=== PATIENT | female | born 1935 | race Caucasian/White ===

== ENCOUNTER → 2017-03-25 | Outpatient (CLI) | payer MEDICARE, OTHER ==
--- NOTE | 2017-03-25 09:22 | RADIOLOGY REPORT (SQ) ---
EXAM DESCRIPTION: MRI ABDOMEN WITHOUT COMPLETED DATE/TIME: 03/25/2017 8:39 am REASON FOR STUDY: *MRCP* OTHER SPECIFIED DISEASES OF BILIARY TRACT (K83.8) K83.8 OTHER SPECIFIED DI SEASES OF BILIARY TRACT COMPARISON: None. TECHNIQUE: Noncontrast MRCP. Source and MIP images reviewed. LIMITATIONS: Motion artifact. FINDINGS: GALLBLADDER: Distended. Possible small amount of material layering in the dependent porti on. INTRAHEPATIC DUCTS: Markedly dilated. EXTRAHEPATIC DUCTS: Markedly dilated extrahepatic bile ducts. The common bile duct measures 14 mm. No definite filling defects. Mild dilation of the pancreatic duct. PANCREAS: Generally homogeneous, no gross mass or significant signal alteration. No surrounding infl ammatory changes or fluid. Pancreatic duct mildly dilated. LIVER, SPLEEN, KIDNEYS, ADRENALS: No significant abnormality. VESSELS: No evidence of aneurysm. Grossly appropriate flow voids in the major vascular structures. LUNG BASES: Grossly clear. OTHER: No other significant finding. IMPRESSION: 1. MARKEDLY DILATED BILIARY SYSTEM. NO CLEAR-CUT FILLING DEFECTS IN THE LUMEN. RECOMMEND ERCP FOR F URTHER EVALUATION AND TREATMENT. 2. DISTENDED GALLBLADDER. QUESTIONABLE LAYERING MATERIAL, POSSIBLY SLUDGE, VERSUS ARTIFACT. RECOMME ND CORRELATION WITH ULTRASOUND. TECHNICAL DOCUMENTATION: JOB ID: [id number] [employer]- All Rights Reserved
--- NOTE | 2017-03-25 09:24 | RADIOLOGY REPORT (SQ) ---
EXAM DESCRIPTION: MRI ABDOMEN COMBO COMPLETED DATE/TIME: 03/25/2017 8:39 am REASON FOR STUDY: OTHER SPECIFIED DISEASES OF BILIARY TRACT (K83.8) K83.8 OTHER SPECIFIED DISEASES OF BILIARY TRACT COMPARISON: None. TECHNIQUE: Multiplanar multisequence imaging performed without and with contrast including sagittal, axial and coronal T2, axial T1, axial gradient fat sat T1, axial, sagittal and coronal fat sat T1 po st contrast. CONTRAST TYPE AND DOSE: 20 mL Prohance. RENAL FUNCTION: GFR 47. LIMITATIONS: None. FINDINGS: LIVER: Normal size. No masses. Markedly dilated intrahepatic and extrahepatic bile ducts. SPLEEN: Normal size. No focal lesions. PANCREAS: No masses. No adjacent inflammation or peripancreatic fluid collections. Pancreatic duct no t dilated. GALLBLADDER: Distended. No masses. Possible small amount of layering material in the lumen. No gal lbladder wall thickening or pericholecystic fluid. ADRENAL GLANDS: No significant masses or asymmetry. RIGHT KIDNEY AND URETER: No masses. No hydronephrosis. LEFT KIDNEY AND URETER: No masses. No hydronephrosis. AORTA AND VESSELS: No aneurysm. No dissection. Renal arteries, SMA, celiac without stenosis. RETROPERITONEUM: No retroperitoneal adenopathy, hemorrhage or masses. BOWEL: No visualized masses. No inflammation. No significant dilatation. ABDOMINAL WALL AND PERITONEUM: No hernias. No free fluid. BONES: No acute or significant findings. OTHER: No other significant finding. IMPRESSION: 1. MARKEDLY DILATED INTRAHEPATIC AND EXTRAHEPATIC BILE DUCTS. NO OBVIOUS ETIOLOGY. RECOMMEND ERCP F OR FURTHER EVALUATION AND TREATMENT. 2. DISTENDED GALLBLADDER. POSSIBLE LAYERING MATERIAL, POSSIBLY SLUDGE VERSUS ARTIFACT. RECOMMEND CO RRELATION WITH ULTRASOUND. 3. NO OTHER SIGNIFICANT FINDINGS. TECHNICAL DOCUMENTATION: JOB ID: [id number] [employer]- All Rights Reserved
== END ==
LOC: RAD 06:39
PROVIDERS: ATTEND Internal Medicine Gastroenterology
DX: K83.8 Other specified diseases of biliary tract (principal)
CPT/HCPCS: 82565; 74181; 74183; A9576